=== PATIENT | female | born 1990 | race African-American/Black ===

== ENCOUNTER 2018-05-21 12:33 | Emergency (ER) | payer MEDICAID ==
[~2018-05-21] VITALS: Ht 172.7 cm; Wt 239.5 kg
[2018-05-21 13:26] LABS: Eosinophils # (auto) 0 uL; Eosinophils % (auto) 0.4 % (0.0-7.0); Hemoglobin 10.3 g/dL (12.2-16.2); Red Cell Distribution Width 18.1 % (11.8-14.3)
[2018-05-21 13:28] LABS: Basophils # (auto) 0 uL; Basophils % (auto) 0.4 % (0.0-2.0); Hematocrit 33.8 % (36.0-46.0); Lymphocytes # (auto) 2.3 uL; Lymphocytes % (auto) 23.1 % (10.0-50.0); Mean Corpuscular Hemoglobin 23.1 pg (28.0-32.0); Mean Corpuscular Hgb Conc. 30.5 g/dL (32.0-36.0); Mean Corpuscular Volume 75.7 fL (80.0-100.0); Monocytes # (auto) 0.7 uL; Monocytes % (auto) 6.6 % (0.0-12.0); Neutrophils % (auto) 69.5 % (37.0-80.0); Platelet Count (auto) 387 10^3/uL (140-450); Red Blood Cells 4.46 10^6/uL (4.0-5.20); White Blood Cell 10.1 10^3/uL (4.4-10.8)
[2018-05-21 13:40] LABS: Alanine Aminotransferase 14 U/L (13-56); Alkaline Phosphatase 64 U/L (45-117); Anion Gap 3 (5-15); Aspartate Aminotransferase 13 U/L (15-37); Bilirubin, Total 0.4 mg/dL (0.2-1.0); Blood Urea Nitrogen 5 mg/dL (7-18); Calcium 8.4 mg/dL (8.5-10.1); Carbon Dioxide 28 mmol/L (21-32); Chloride 109 mmol/L (98-107); GFR African American 106 mL/min; GFR Non-African American 88 mL/min; Glucose 86 mg/dL (74-106); Magnesium 2.3 mg/dL (1.6-2.6); Potassium 3.7 mmol/L (3.5-5.1); Sodium 140 mmol/L (136-145); Total Protein 8.1 g/dL (6.4-8.2)
[2018-05-21] MEDS ORDERED: ONDANSETRON HCL 4 MG/2 ML VIAL IM ONE (15:30)
[2018-05-21] MEDS ORDERED: KETOROLAC TROMETH 30 MG/ML 1ML VIAL IV ONE ×2 (15:30→18:30)
[2018-05-21] MEDS ORDERED: ONDANSETRON HCL 4 MG/2 ML VIAL IV ONE (18:30)
[2018-05-21 18:55] VITALS: BP 163/76
== END 2018-05-21 19:04 | disposition home or self-care (01) ==
LOC: ER 12:33 → EDBD 12:33 → ER 19:03
DX: R11.2 Nausea with vomiting, unspecified (principal); D64.89 Other specified anemias
CPT/HCPCS: 36415; 80053; 83735; 84484; 84702; 85025; 93005; 94761; 96372; 96374; 96375; 96376; 99285; J1885; J2405

== ENCOUNTER 2018-05-23 09:17 | Emergency (ER) | payer MEDICAID ==
[~2018-05-23] VITALS: Ht 172.7 cm; Wt 239.5 kg
[2018-05-23] MEDS ORDERED: ONDANSETRON ODT 4 MG TAB PO ONE (10:00)
[2018-05-23] MEDS ORDERED: PANTOPRAZOLE 40 MG TAB PO ONE (10:00)
[2018-05-23 10:26] LABS: Albumin 3.2 g/dL (3.4-5.0); BUN/Creatinine Ratio 6.7; Bilirubin, Total 0.5 mg/dL (0.2-1.0); Calcium 8.5 mg/dL (8.5-10.1); Potassium 3.1 mmol/L (3.5-5.1); Total Protein 8.3 g/dL (6.4-8.2)
[2018-05-23 10:27] LABS: Hemoglobin 10.3 g/dL (12.2-16.2); White Blood Cell 9.2 10^3/uL (4.4-10.8)
[2018-05-23 10:28] LABS: Basophils # (auto) 0 uL; Basophils % (auto) 0.5 % (0.0-2.0); Eosinophils # (auto) 0.1 uL; Eosinophils % (auto) 0.6 % (0.0-7.0); Hematocrit 33.2 % (36.0-46.0); Lymphocytes # (auto) 2.3 uL; Lymphocytes % (auto) 24.5 % (10.0-50.0); Mean Corpuscular Hemoglobin 23.7 pg (28.0-32.0); Mean Corpuscular Hgb Conc. 31.2 g/dL (32.0-36.0); Mean Corpuscular Volume 76.1 fL (80.0-100.0); Monocytes # (auto) 0.6 uL; Monocytes % (auto) 6.9 % (0.0-12.0); Neutrophils # (auto) 6.2 uL; Neutrophils % (auto) 67.5 % (37.0-80.0); Nucleated Red Blood Cells % 0.1 %; Platelet Count (auto) 370 10^3/uL (140-450); Red Blood Cells 4.36 10^6/uL (4.0-5.20); Red Cell Distribution Width 18.1 % (11.8-14.3)
[2018-05-23] MEDS ORDERED: POTASSIUM EFFERVESENT TAB 25 MEQ PO ONE (11:00)
[2018-05-23 12:58] LABS: Urine Bacteria FEW /hpf (None Seen); Urine Blood 3+ /uL (Negative); Urine Mucus FEW (None Seen); Urine Specific Gravity 1.016 (1.001-1.035); Urine WBC 18 /hpf (0 - 5)
[2018-05-23] MEDS ORDERED: KETOROLAC TROMETH 60MG/2ML VIAL IM ONE (14:15)
[2018-05-23 14:37] VITALS: BP 147/98
== END 2018-05-23 14:42 | disposition home or self-care (01) ==
LOC: EDBD 09:17 → ER 09:23
DX: K29.70 Gastritis, unspecified, without bleeding (principal); E66.01 Morbid (severe) obesity due to excess calories; Z68.45 Body mass index [BMI] 70 or greater, adult
CPT/HCPCS: 36415; 80053; 81001; 81025; 83690; 85025; 94761; 96372; 99284; J1885; Q0162

== ENCOUNTER 2018-06-02 15:37 | Emergency (ER) | payer MEDICAID ==
[~2018-06-02] VITALS: Ht 172.7 cm; Wt 241.8 kg
[2018-06-02 15:47] VITALS: BP 153/97
[2018-06-02] MEDS ORDERED: KETOROLAC TROMETH 60MG/2ML VIAL IM ONE (17:00)
== END 2018-06-02 16:50 | disposition left against medical advice (07) ==
LOC: ER 15:37
DX: R51 Headache (principal); M54.2 Cervicalgia; Z53.29 Procedure and treatment not carried out because of patient's decision for other reasons; Y08.89XA Assault by other specified means, initial encounter; Y93.89 Activity, other specified; Y99.8 Other external cause status; Y92.89 Other specified places as the place of occurrence of the external cause

== ENCOUNTER 2018-06-13 13:31 | Emergency (ER) | payer MEDICAID ==
[~2018-06-13] VITALS: Ht 172.7 cm; Wt 240.4 kg
[2018-06-13 14:15] VITALS: BP 132/69
== END 2018-06-13 15:41 | disposition home or self-care (01) ==
LOC: ER 13:31
DX: R07.89 Other chest pain (principal); I10 Essential (primary) hypertension; J45.909 Unspecified asthma, uncomplicated; I25.2 Old myocardial infarction; F12.10 Cannabis abuse, uncomplicated; Z59.0 Homelessness
CPT/HCPCS: 71045; 93005

== ENCOUNTER 2018-06-13 23:37 | Emergency (ER) | payer MEDICAID ==
[~2018-06-13] VITALS: Ht 172.7 cm; Wt 238.1 kg
[2018-06-14 00:39] LABS: Basophils # (auto) 0.1 uL; Eosinophils # (auto) 0 uL; Eosinophils % (auto) 0.1 % (0.0-7.0)
[2018-06-14 00:41] LABS: Basophils % (auto) 0.7 % (0.0-2.0); Hematocrit 31.9 % (36.0-46.0); Hemoglobin 9.7 g/dL (12.2-16.2); Lymphocytes # (auto) 3.3 uL; Lymphocytes % (auto) 29.9 % (10.0-50.0); Mean Corpuscular Hgb Conc. 30.3 g/dL (32.0-36.0); Mean Corpuscular Volume 75.7 fL (80.0-100.0); Monocytes % (auto) 8.9 % (0.0-12.0); Neutrophils # (auto) 6.7 uL; Neutrophils % (auto) 60.4 % (37.0-80.0); Platelet Count (auto) 379 10^3/uL (140-450); Red Blood Cells 4.21 10^6/uL (4.0-5.20); Red Cell Distribution Width 18.2 % (11.8-14.3); White Blood Cell 11.1 10^3/uL (4.4-10.8)
[2018-06-14] MEDS ORDERED: IPRATROPIUM BROM 0.5 MG/2.5ML INH SOL NEB ONE (00:45)
[2018-06-14] MEDS ORDERED: ALBUTEROL SULF 2.5 MG/0.5ML(0.5%) NEB SOLN NEB ONE (00:45)
[2018-06-14 00:55] LABS: INR 0.97 (0.9-1.15); Partial Thromboplastin Time 26.7 sec (23.78-33.04); Prothrombin Time 10.4 sec (9.27-12.13)
[2018-06-14 00:56] LABS: Alanine Aminotransferase 23 U/L (13-56); Albumin 3.4 g/dL (3.4-5.0); Anion Gap 7 (5-15); Blood Urea Nitrogen 11 mg/dL (7-18); Calcium 8.8 mg/dL (8.5-10.1); Carbon Dioxide 27 mmol/L (21-32); Chloride 108 mmol/L (98-107); Glucose 96 mg/dL (74-106); Potassium 3.3 mmol/L (3.5-5.1); Sodium 142 mmol/L (136-145)
[2018-06-14 01:01] LABS: Alkaline Phosphatase 74 U/L (45-117); Aspartate Aminotransferase 30 U/L (15-37); Bilirubin, Total 0.4 mg/dL (0.2-1.0); GFR African American 77 mL/min; GFR Non-African American 63 mL/min; Total Protein 8.3 g/dL (6.4-8.2)
[2018-06-14 01:07] LABS: Beta HCG, Quantitative < 1 mlU/mL (1-3); Thyroid Stimulating Hormone 0.92 uIU/mL (0.358-3.74)
[2018-06-14] MEDS ORDERED: LEVOFLOXACIN 750MG 150 ML IV ONE (02:00)
[2018-06-14] MEDS ORDERED: guaiFENesin-DM 100/10mg/5ml SYR PO ONE (02:00)
[2018-06-14 03:02] VITALS: BP 130/70
== END 2018-06-14 03:58 | disposition home or self-care (01) ==
LOC: EDBD 23:37 → ER 23:37
DX: J20.9 Acute bronchitis, unspecified (principal); I10 Essential (primary) hypertension; J45.909 Unspecified asthma, uncomplicated; I25.2 Old myocardial infarction; F12.10 Cannabis abuse, uncomplicated
CPT/HCPCS: 36415; 71045; 80053; 83735; 83880; 84443; 84484; 84702; 85025; 85379; 85610; 85730; 93005; 94640; 96365; 96366; 99285; J1956; J7611; J7644